=== PATIENT | male | born 1970 ===

== ENCOUNTER 2018-02-17 13:57 | Emergency (ER) | payer OTHER ==
[2018-02-17 14:05] VITALS: BP 111/75; PULSE 80; RESP 18; TEMP 98; O2SAT 100
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
== END 2018-02-17 14:59 | disposition home or self-care (01) ==
LOC: C.ER 13:57
DX: T23.472A Corrosion of unspecified degree of left wrist, initial encounter (principal); T23.471A Corrosion of unspecified degree of right wrist, initial encounter; T65.91XA Toxic effect of unspecified substance, accidental (unintentional), initial encounter